=== PATIENT | female | born 1970 | race Caucasian/White ===

== ENCOUNTER 2021-08-23 06:33 | Observation (INO) | payer BC ==
[2021-07-30 11:57] LABS: BLOOD UREA NITROGEN,BUN 14 mg/dL (7.0-18.0); CHLORIDE,CL 104 mmol/L (98-107); GLUCOSE RANDOM 78 mg/dL (74-106); POTASSIUM,K 4.6 mmol/L (3.5-5.1); SODIUM,NA 140 mmol/L (136-145)
[2021-08-23 07:09] LABS: CARBON DIOXIDE,CO2 28.6 mmol/L (21.0-32.0)
[2021-08-23] MEDS ORDERED: Scopolamine 1.5 MG Transdermal Patch ONE (07:21)
[2021-08-23] MEDS ORDERED: Fluorescein 5 ML Vial ONE (07:29)
[2021-08-23] MEDS ORDERED: Methylene Blue 50 MG/10 ML Ampule ONE (07:29)
--- NOTE | 2021-08-23 07:29 | PCM.PREANE ---
Preanesthetic Assessment - Procedure Proposed Procedure: Lap assisted Vaginal Hysterectomy, Uni or Dipak Salpingo-Ooporectomy, cysto - Anesthesia/Transfusion/Family Hx Anesthesia History: Prior Anesthesia Reaction Type of Anesthesia Reaction: Excessive Nausea/Vomiting Family History of Anesthesia Reaction: No Transfusion History: No Prior Transfusion(s) - Review of Systems General: No Symptoms Pulmonary: No Symptoms Cardiovascular: No Symptoms (HLD) Gastrointestinal: No Symptoms Neurological: No Symptoms Other: Reports: None - Physical Assessment NPO Status Date: 08/24/21 NPO Status Time: 15:30 Vital Signs: Last Vital Signs Temp 97.7 F 08/23/21 06:55 Pulse 60 08/23/21 06:55 Resp 14 08/23/21 06:55 BP 123/57 L 08/23/21 06:55 Pulse Ox 98 08/23/21 06:55 Height: 5 ft 10 in Weight: 95.254 kg ASA Class: 2 Mental Status: Alert & Oriented x3 Airway Class: Mallampati = 2 Dentition: Reports: Normal Dentition Thyro-Mental Finger Breadths: 3 Mouth Opening Finger Breadths: 3 ROM/Head Extension: Full Lungs: Clear to Auscultation, Normal Respiratory Effort Cardiovascular: Regular Rate, Regular Rhythm - Lab Values: Laboratory Last Values WBC 6.33 K/uL (4.0-11.0) 08/23/21 06:17 RBC 4.26 M/uL (4.30-5.90) L 08/23/21 06:17 Hgb 12.7 g/dL (12.0-16.0) 08/23/21 06:17 Hct 38.8 % (36.0-46.0) 08/23/21 06:17 MCV 91.1 fL (80.0-98.0) 08/23/21 06:17 MCH 29.8 pg (27.0-32.0) 08/23/21 06:17 MCHC 32.7 g/dL (31.0-37.0) 08/23/21 06:17 RDW Std Deviation 41.4 fl (28.0-62.0) 08/23/21 06:17 RDW Coeff of Debo 13 % (11.0-15.0) 08/23/21 06:17 Plt Count 310 K/uL (150-400) 08/23/21 06:17 MPV 10.30 fL (7.40-12.00) 08/23/21 06:17 Neut % (Auto) 55.5 % (48.0-80.0) 08/23/21 06:17 Lymph % (Auto) 34.1 % (16.0-40.0) 08/23/21 06:17 [place] % (Auto) 8.1 % (0.0-15.0) 08/23/21 06:17 Eos % (Auto) 2.1 % (0.0-7.0) 08/23/21 06:17 Baso % (Auto) 0.2 % (0.0-1.5) 08/23/21 06:17 Neut # (Auto) 3.5 K/uL (1.4-5.7) 08/23/21 06:17 Lymph # (Auto) 2.2 K/uL (0.6-2.4) 08/23/21 06:17 [place] # (Auto) 0.5 K/uL (0.0-0.8) 08/23/21 06:17 Eos # (Auto) 0.1 K/uL (0.0-0.7) 08/23/21 06:17 Baso # (Auto) 0.0 K/uL (0.0-0.1) 08/23/21 06:17 Nucleated RBC % 0.0 /100WBC 08/23/21 06:17 Nucleated RBCs # 0 K/uL 08/23/21 06:17 Sodium 143 mmol/L (136-145) 08/23/21 06:17 Potassium 4.0 mmol/L (3.5-5.1) 08/23/21 06:17 Chloride 105 mmol/L (98-107) 08/23/21 06:17 Carbon Dioxide 28.6 mmol/L (21.0-32.0) 08/23/21 06:17 BUN 11 mg/dL (7.0-18.0) 08/23/21 06:17 Creatinine 1.0 mg/dL (0.6-1.0) 08/23/21 06:17 Est Cr Clr Drug Dosing 73.59 mL/min 08/23/21 06:17 Estimated GFR (MDRD) 58.9 ml/min 08/23/21 06:17 Glucose 100 mg/dL (74-106) 08/23/21 06:17 Calcium 9.3 mg/dL (8.5-10.1) 08/23/21 06:17 HCG, Qual POSITIVE (NEG) H 08/23/21 06:17 HCG, Quant 7.0 mIU/mL 07/30/21 11:04 SARS-CoV-2 RNA (BAUTISTA) NEGATIVE (NEGATIVE) 08/23/21 06:00 Blood Type A POSITIVE 08/23/21 06:17 Antibody Screen NEGATIVE 08/23/21 06:17 - Allergies Allergies/Adverse Reactions: Allergies Allergy/AdvReac Type Severity Reaction Status Date / Time Sulfa (Sulfonamide Allergy Blisters Verified 08/23/21 07:01 Antibiotics) - Acknowledgements Anesthesia Type Planned: General Anesthesia Pt an Appropriate Candidate for the Planned Anesthesia: Yes Alternatives and Risks of Anesthesia Discussed w Pt/Guardian: Yes Pt/Guardian Understands and Agrees with Anesthesia Plan: Yes PreAnesthesia Questionnaire HEENT History: Reports: Allergic Rhinitis, Other (See Below) Other HEENT History: wears glasses Cardiovascular History: Reports: High Cholesterol Respiratory History: Reports: None Gastrointestinal History: Reports: GERD Genitourinary History: Reports: Other (See Below) Other Genitourinary History: kidney infection 5 years ago [employer] History: Reports: Endometriosis, Musculoskeletal History: Reports: None Neurological History: Reports: None Psychiatric History: Reports: None Endocrine/Metabolic History: Reports: Diabetes, Gestational, Obesity/BMI 30+ Hematologic History: Reports: None Immunologic History: Reports: None Oncologic (Cancer) History: Reports: None Dermatologic History: Reports: None - Infectious Disease History Other Infectious Disease History: COVID positive in Aug, 2020 - Past Surgical History Head Surgeries/Procedures: Reports: None HEENT Surgical History: Reports: None Cardiovascular Surgical History: Reports: None Respiratory Surgical History: Reports: None GI Surgical History: Reports: None Female Surgical History: Reports: Other (See Below) Other Female Surgeries/Procedures: laparoscopy with ovarian cystectomy Endocrine Surgical History: Reports: None Neurological Surgical History: Reports: None Musculoskeletal Surgical History: Reports: None Oncologic Surgical History: Reports: None Dermatological Surgical History: Reports: None - SUBSTANCE USE Tobacco Use Status *Q: Never Tobacco User - HOME MEDS Home Medications: Home Meds Chlorpheniramine/Phenylephrine [Sinus-Allergy PE 4-10 mg Tab] 1 tab PO Q4H PRN 07/27/21 [History] Ibuprofen 2 tab PO ASDIRECTED PRN 07/27/21 [History] Multivitamin 1 tab PO DAILY 07/27/21 [History] [place]-3S/DHA/Epa/Fish Oil [[place]-3 Fish Oil 1,200 mg Sfgl] 2,400 mg PO DAILY 07/27/21 [History] Rosuvastatin [Crestor] 10 mg PO DAILY 07/27/21 [History] Calcium Carb, Citrate/Vit D3 [Calcium + D3 ER Tablet] 1 tab PO DAILY 07/28/21 [History] - CURRENT (IN HOUSE) MEDS Current Meds: Current Medications Discontinued Medications Scopolamine (Scopolamine 1.5 Mg Transdermal Patch) Confirm Administered Dose 1.5 mg .ROUTE .STK-MED ONE Stop: 08/23/21 07:22
[2021-08-23] MEDS ORDERED: Bupivacaine 0.25% 10 ML SDV ONE (07:31)
[2021-08-23] MEDS ORDERED: Midazolam 1 MG/ML 2 ML SDV ONE (07:31)
[2021-08-23] MEDS ORDERED: fentaNYL 250 MCG/5 ML SDV ONE (07:32)
[2021-08-23] MEDS ORDERED: Lidocaine 2% 5 ML SDV ONE (07:34)
[2021-08-23] MEDS ORDERED: Ondansetron 4 MG/2 ML SDV ONE (07:34)
[2021-08-23] MEDS ORDERED: Rocuronium Bromide 50 MG/5 ML Syringe ONE ×3 (07:34→09:21)
[2021-08-23] MEDS ORDERED: Dexamethasone 4 MG/ML 5 ML MDV ONE (07:34)
[2021-08-23] MEDS ORDERED: Propofol 200 MG/20 ML SDV ONE (07:34)
[2021-08-23] MEDS ORDERED: Sugammadex Sodium 200 MG/2 ML VIAL ONE (07:34)
[2021-08-23] MEDS ORDERED: HYDROmorphone 1 MG/ML Syringe IVPUSH PRN (08:25)
[2021-08-23] MEDS ORDERED: Albuterol 0.083% 2.5 MG/3 ML Neb Soln NEB PRN (08:25)
[2021-08-23] MEDS ORDERED: Ondansetron 4 MG/2 ML SDV IVPUSH PRN ×2 (08:25→10:15)
[2021-08-23] MEDS ORDERED: Metoclopramide 10 MG/2 ML SDV IVPUSH PRN (08:25)
[2021-08-23] MEDS ORDERED: fentaNYL 100 MCG/2 ML SDV IVPUSH PRN (08:25)
[2021-08-23] MEDS ORDERED: Naloxone 0.4 MG/ML SDV IVPUSH PRN (08:25)
[2021-08-23] MEDS ORDERED: Glycopyrrolate 0.2 MG/ML SDV ONE ×2 (08:57)
[2021-08-23] MEDS ORDERED: Furosemide 40 MG/4 ML VIAL ONE (09:45)
[2021-08-23] MEDS ORDERED: Ketorolac 30 MG/ML SDV ONE (10:00)
[2021-08-23] MEDS ORDERED: Ketorolac 30 MG/ML SDV IVPUSH ONE (10:15)
[2021-08-23] MEDS ORDERED: Acetaminophen/oxyCODONE 325-5 MG Tab PO PRN ×2 (10:15)
[2021-08-23] MEDS ORDERED: Promethazine 25 MG/ML SDV IM PRN (10:15)
--- NOTE | 2021-08-23 10:24 | PCM.OPNOTE ---
- General Post-Op/Procedure Note Date of Surgery/Procedure: 08/23/21 Operative Procedure(s): Laparoscopic assisted vaginal hysterectomy with bilateral salpingo-oophorectomy and cystoscopy Findings: Normal appearing anteverted uterus sounded to 9cm. Normal appearing bilateral ovaries and fallopian tubes. Pre Op Diagnosis: Postmenopausal bleeding Post-Op Diagnosis: Postmenopausal bleeding Anesthesia Technique: General ET Tube Primary Surgeon: Adelita Maher Anesthesia Provider: Mary Munoz Softball Player: Gege Chris Pathology: Bilateral fallopian tubes and ovaries, uterus and cervix Fluid Replacement, Intraop: 1,800 Output, Urine Amount: 30 (prior to procedure) EBL in mLs: 150 Complications: None known Condition: Good
--- NOTE | 2021-08-23 10:35 | PCM.POSTAN ---
POST ANESTHESIA ASSESSMENT - MENTAL STATUS Mental Status: Somnolent - VITAL SIGNS Vital Signs: Last Vital Signs Temp 97.7 F 08/23/21 06:55 Pulse 60 08/23/21 06:55 Resp 14 08/23/21 06:55 BP 123/57 L 08/23/21 06:55 Pulse Ox 98 08/23/21 06:55 - RESPIRATORY Respiratory Status: Respiratory Rate WNL, Airway Patent, O2 Saturation Stable - CARDIOVASCULAR CV Status: Pulse Rate WNL, Blood Pressure Stable - GASTROINTESTINAL GI Status: No Symptoms - PAIN Free Text/Narrative:: Resting comfortably - POST OP HYDRATION Hydration Status: Adequate & Stable
--- NOTE | 2021-08-23 10:49 | PCM48HPAN ---
Post Anesthesia Note - EVALUATION WITHIN 48HRS OF ANESTHETIC Vital Signs in Normal Range: Yes Patient Participated in Evaluation: Yes Respiratory Function Stable: Yes Airway Patent: Yes Cardiovascular Function Stable: Yes Hydration Status Stable: Yes Pain Control Satisfactory: Yes Nausea and Vomiting Control Satisfactory: Yes Mental Status Recovered: Yes Vital Signs: Last Vital Signs Temp 97.7 F 08/23/21 06:55 Pulse 60 08/23/21 06:55 Resp 14 08/23/21 06:55 BP 123/57 L 08/23/21 06:55 Pulse Ox 98 08/23/21 06:55 - COMMENTS/OBSERVATIONS Free Text/Narrative:: Pt doing well post-op. VSS. No apparent anesthetic complications. Dr. Dev Ram
[2021-08-23] MEDS: Morphine 4 MG/ML VIAL IVPUSH PRN ×3 (12:47→20:41)
[2021-08-23] MEDS: Ketorolac 30 MG/ML SDV IVPUSH PRN ×2 (16:10→23:52)
[2021-08-24 07:40] LABS: BLOOD UREA NITROGEN,BUN 9 mg/dL (7.0-18.0); CARBON DIOXIDE,CO2 27.7 mmol/L (21.0-32.0); CHLORIDE,CL 104 mmol/L (98-107); GLUCOSE RANDOM 119 mg/dL (74-106); POTASSIUM,K 4.2 mmol/L (3.5-5.1); SODIUM,NA 139 mmol/L (136-145)
--- NOTE | 2021-08-24 09:42 | PCM.SURGPN ---
- General Info Date of Service: 08/24/21 Date of Surgery/Procedure: 08/23/21 POD#: 1 Functional Status: Reports: Pain Controlled, Tolerating Diet, Ambulating, Urinating, Other (Resting comfortable in bed. ) - Patient Data Vitals - Most Recent: Last Vital Signs Temp 96.1 F L 08/24/21 08:41 Pulse 68 08/24/21 08:41 Resp 20 08/24/21 08:41 BP 88/53 L 08/24/21 08:41 Pulse Ox 94 L 08/24/21 08:41 Weight - Most Recent: 210 lb I&O - Last 24 Hours: Intake & Output 08/23/21 08/24/21 08/24/21 22:59 06:59 14:59 Intake Total 1730 Output Total 2450 Balance -720 Lab Results Last 24 Hrs: Laboratory Results - last 24 hr 08/24/21 08/24/21 Range/Units 06:03 06:03 WBC 9.69 (4.0-11.0) K/uL RBC 3.61 L (4.30-5.90) M/uL Hgb 10.9 L (12.0-16.0) g/dL Hct 33.2 L (36.0-46.0) % MCV 92.0 (80.0-98.0) fL MCH 30.2 (27.0-32.0) pg MCHC 32.8 (31.0-37.0) g/dL RDW Std Deviation 42.5 (28.0-62.0) fl RDW Coeff of Debo 13 (11.0-15.0) % Plt Count 273 (150-400) K/uL MPV 11.00 (7.40-12.00) fL Neut % (Auto) 76.4 (48.0-80.0) % Lymph % (Auto) 15.3 L (16.0-40.0) % [place] % (Auto) 8.3 (0.0-15.0) % Eos % (Auto) 0.0 (0.0-7.0) % Baso % (Auto) 0.0 (0.0-1.5) % Neut # (Auto) 7.4 H (1.4-5.7) K/uL Lymph # (Auto) 1.5 (0.6-2.4) K/uL [place] # (Auto) 0.8 (0.0-0.8) K/uL Eos # (Auto) 0.0 (0.0-0.7) K/uL Baso # (Auto) 0.0 (0.0-0.1) K/uL Nucleated RBC % 0.0 /100WBC Nucleated RBCs # 0 K/uL Sodium 139 (136-145) mmol/L Potassium 4.2 (3.5-5.1) mmol/L Chloride 104 (98-107) mmol/L Carbon Dioxide 27.7 (21.0-32.0) mmol/L BUN 9 (7.0-18.0) mg/dL Creatinine 0.9 (0.6-1.0) mg/dL Est Cr Clr Drug Dosing 81.77 mL/min Estimated GFR (MDRD) > 60.0 ml/min Glucose 119 H (74-106) mg/dL Calcium 8.8 (8.5-10.1) mg/dL Med Orders - Current: Current Medications Ketorolac Tromethamine (Ketorolac 30 Mg/Ml Sdv) 30 mg IVPUSH Q6H PRN PRN Reason: Pain (severe 7-10) Stop: 08/28/21 10:16 Last Admin: 08/23/21 23:52 Dose: 30 mg Documented by: Morphine Sulfate (Morphine 4 Mg/Ml Vial) 4 mg IVPUSH Q2H PRN PRN Reason: Pain (severe 7-10) Last Admin: 08/23/21 20:41 Dose: 4 mg Documented by: Ondansetron HCl (Ondansetron 4 Mg/2 Ml Sdv) 4 mg IVPUSH Q6H PRN PRN Reason: Nausea/Vomiting Oxycodone/Acetaminophen (Acetaminophen/Oxycodone 325-5 Mg Tab) 1 tab PO Q4H PRN PRN Reason: Pain (moderate 4-6) Oxycodone/Acetaminophen (Acetaminophen/Oxycodone 325-5 Mg Tab) 2 tab PO Q4H PRN PRN Reason: Pain (moderate 4-6) Last Admin: 08/24/21 07:59 Dose: 2 tab Documented by: Promethazine HCl (Promethazine 25 Mg/Ml Sdv) 25 mg IM Q6H PRN PRN Reason: Nausea/Vomiting Discontinued Medications Albuterol (Albuterol 0.083% 2.5 Mg/3 Ml Neb Soln) 2.5 mg NEB ONETIME PRN PRN Reason: Wheezing Bupivacaine HCl (Bupivacaine 0.25% 10 Ml Sdv) Confirm Administered Dose 10 ml .ROUTE .STK-MED ONE Stop: 08/23/21 07:32 Dexamethasone (Dexamethasone 4 Mg/Ml 5 Ml Mdv) Confirm Administered Dose 20 mg .ROUTE .STK-MED ONE Stop: 08/23/21 07:35 Droperidol (Droperidol 5 Mg/2 Ml Sdv) 0.625 mg IVPUSH ONETIME PRN PRN Reason: Nausea/Vomiting Fentanyl (Fentanyl 250 Mcg/5 Ml Sdv) Confirm Administered Dose 250 mcg .ROUTE .STK-MED ONE Stop: 08/23/21 07:33 Fentanyl (Fentanyl 100 Mcg/2 Ml Sdv) 50 mcg IVPUSH Q5M PRN PRN Reason: Pain (mild 1-3) Fluorescein Sodium (Fluorescein 5 Ml Vial) Confirm Administered Dose 5 ml .ROUTE .STK-MED ONE Stop: 08/23/21 07:30 Furosemide (Furosemide 40 Mg/4 Ml Vial) Confirm Administered Dose 40 mg .ROUTE .STK-MED ONE Stop: 08/23/21 09:46 Glycopyrrolate (Glycopyrrolate 0.2 Mg/Ml Sdv) Confirm Administered Dose 0.2 mg .ROUTE .STK-MED ONE Stop: 08/23/21 08:58 Glycopyrrolate (Glycopyrrolate 0.2 Mg/Ml Sdv) Confirm Administered Dose 0.2 mg .ROUTE .STK-MED ONE Stop: 08/23/21 08:58 Hydromorphone HCl (Hydromorphone 1 Mg/Ml Syringe) 1 mg IVPUSH Q10M PRN PRN Reason: Pain (moderate 4-6) Last Admin: 08/23/21 10:47 Dose: 1 mg Documented by: Cefazolin Sodium/Dextrose (Ancef) Confirm Administered Dose 50 mls @ as directed .ROUTE .STK-MED ONE Stop: 08/23/21 07:35 Acetaminophen (Ofirmev 1000 Mg/100 Ml) Confirm Administered Dose 100 mls @ as directed .ROUTE .STK-MED ONE Stop: 08/23/21 07:35 Ketorolac Tromethamine (Ketorolac 30 Mg/Ml Sdv) Confirm Administered Dose 30 mg .ROUTE .STK-MED ONE Stop: 08/23/21 10:01 Ketorolac Tromethamine (Ketorolac 30 Mg/Ml Sdv) 30 mg IVPUSH ONETIME ONE Stop: 08/23/21 10:16 Last Admin: 08/23/21 12:38 Dose: Not Given Documented by: Lidocaine (Lidocaine 2% 5 Ml Sdv) Confirm Administered Dose 10 ml .ROUTE .STK- MED ONE Stop: 08/23/21 07:35 Methylene Blue (Methylene Blue 50 Mg/10 Ml Ampule) Confirm Administered Dose 50 mg .ROUTE .STK-MED ONE Stop: 08/23/21 07:30 Metoclopramide HCl (Metoclopramide 10 Mg/2 Ml Sdv) 10 mg IVPUSH ONETIME PRN PRN Reason: Nausea/Vomiting Midazolam HCl (Midazolam 1 Mg/Ml 2 Ml Sdv) Confirm Administered Dose 2 mg .ROUTE .STK-MED ONE Stop: 08/23/21 07:32 Miscellaneous Medication (Phenylephrine Hcl In 0.9% Nacl 1 Mg/10 Ml Syringe) Confirm Administered Dose 1 mg .ROUTE .STK-MED ONE Stop: 08/23/21 08:27 Naloxone HCl (Naloxone 0.4 Mg/Ml Sdv) 0.1 mg IVPUSH ASDIRECTED PRN PRN Reason: Respiratory Depression Ondansetron HCl (Ondansetron 4 Mg/2 Ml Sdv) Confirm Administered Dose 4 mg .ROUTE .STK-MED ONE Stop: 08/23/21 07:35 Ondansetron HCl (Ondansetron 4 Mg/2 Ml Sdv) 4 mg IVPUSH ONETIME PRN PRN Reason: Nausea/Vomiting Propofol (Propofol 200 Mg/20 Ml Sdv) Confirm Administered Dose 200 mg .ROUTE .STK-MED ONE Stop: 08/23/21 07:35 Rocuronium [place] (Rocuronium [place] 50 Mg/5 Ml Syringe) Confirm Administered Dose 50 mg .ROUTE .STK-MED ONE Stop: 08/23/21 07:35 Rocuronium [place] (Rocuronium [place] 50 Mg/5 Ml Syringe) Confirm Administered Dose 50 mg .ROUTE .STK-MED ONE Stop: 08/23/21 07:36 Rocuronium [place] (Rocuronium [place] 50 Mg/5 Ml Syringe) Confirm Administered Dose 50 mg .ROUTE .STK-MED ONE Stop: 08/23/21 09:22 Scopolamine (Scopolamine 1.5 Mg Transdermal Patch) Confirm Administered Dose 1.5 mg .ROUTE .STK-MED ONE Stop: 08/23/21 07:22 Last Admin: 08/23/21 22:47 Dose: Not Given Documented by: Sugammadex Sodium (Sugammadex Sodium 200 Mg/2 Ml Vial) Confirm Administered Dose 200 mg .ROUTE .STK-MED ONE Stop: 08/23/21 07:35 - Exam General: Alert Lungs: Clear to Auscultation, Normal Respiratory Effort Cardiovascular: Regular Rate, Regular Rhythm GI/Abdominal Exam: Normal Bowel Sounds, Soft, No Distention, Other (Incision sites clean and dry) Extremities: Normal Range of Motion, Non-Tender, No Pedal Edema Skin: Warm, Dry, Cool Neurological: No New Focal Deficit Psy/Mental Status: Normal Mood Sepsis Event Note - Evaluation Sepsis Screening Result: No Definite Risk - Focused Exam Vital Signs: Vital Signs Temp Pulse Resp BP Pulse Ox 08/24/21 08:41 96.1 F L 68 20 88/53 L 94 L 08/24/21 03:57 96.7 F L 48 L 14 90/45 L 96 08/24/21 00:46 96.6 F L 45 L 14 97/50 L 96 - Problem List Review Problem List Initiated/Reviewed/Updated: Yes - My Orders Last 24 Hours: Active Orders 24 hr Category Date Time Status Patient Status [ADT] Routine ADT 08/23/21 10:16 Active Antiembolic Devices [RC] PER UNIT ROUTINE Care 08/23/21 10:17 Active Notify Provider Intake and Out [RC] ASDIRECTED Care 08/23/21 10:16 Active Notify Provider Vital Signs [RC] ASDIRECTED Care 08/23/21 10:16 Active Oxygen Therapy [RC] ASDIRECTED Care 08/23/21 10:16 Active RT Incentive Spirometry [RC] Q2HWA Care 08/23/21 10:16 Active Up With Assistance [RC] PER UNIT ROUTINE Care 08/23/21 10:16 Active Up ad Kellen [RC] PER UNIT ROUTINE Care 08/23/21 10:16 Active Urinary Catheter Removal [RC] Per Unit Routine Care 08/23/21 10:16 Active Vital Signs [RC] PER UNIT ROUTINE Care 08/23/21 10:16 Active Advance Diet Instructions [DIET] Diet 08/23/21 Dinner Active Acetaminophen/oxyCODONE [Percocet 325-5 MG] Med 08/23/21 10:15 Active 1 tab PO Q4H PRN Acetaminophen/oxyCODONE [Percocet 325-5 MG] Med 08/23/21 10:15 Active 2 tab PO Q4H PRN Ketorolac [Toradol] Med 08/23/21 10:15 Active 30 mg IVPUSH Q6H PRN Morphine Med 08/23/21 10:15 Active 4 mg IVPUSH Q2H PRN Ondansetron [Zofran] Med 08/23/21 10:15 Active 4 mg IVPUSH Q6H PRN Promethazine [Phenergan] Med 08/23/21 10:15 Active 25 mg IM Q6H PRN Peripheral IV Discontinue [OM.PC] Routine Oth 08/23/21 10:16 Ordered Sequential Compression Device [OM.PC] Per Unit Routine Oth 08/23/21 10:16 Ordered Resuscitation Status Routine Resus Stat 08/23/21 10:15 Ordered Medication Orders Ketorolac Tromethamine (Ketorolac 30 Mg/Ml Sdv) 30 mg IVPUSH Q6H PRN PRN Reason: Pain (severe 7-10) Stop: 08/28/21 10:16 Last Admin: 08/23/21 23:52 Dose: 30 mg Documented by: Admin: 08/23/21 16:10 Dose: 30 mg Documented by: BRITTNI Morphine Sulfate (Morphine 4 Mg/Ml Vial) 4 mg IVPUSH Q2H PRN PRN Reason: Pain (severe 7-10) Last Admin: 08/23/21 20:41 Dose: 4 mg Documented by: Admin: 08/23/21 17:54 Dose: 4 mg Documented by: Admin: 08/23/21 12:47 Dose: 4 mg Documented by: BRITTNI Ondansetron HCl (Ondansetron 4 Mg/2 Ml Sdv) 4 mg IVPUSH Q6H PRN PRN Reason: Nausea/Vomiting Oxycodone/Acetaminophen (Acetaminophen/Oxycodone 325-5 Mg Tab) 1 tab PO Q4H PRN PRN Reason: Pain (moderate 4-6) Oxycodone/Acetaminophen (Acetaminophen/Oxycodone 325-5 Mg Tab) 2 tab PO Q4H PRN PRN Reason: Pain (moderate 4-6) Last Admin: 08/24/21 07:59 Dose: 2 tab Documented by: BRITTNI Promethazine HCl (Promethazine 25 Mg/Ml Sdv) 25 mg IM Q6H PRN PRN Reason: Nausea/Vomiting - Assessment Assessment (Free Text/Narrative):: 50 year old female POD1 s/p LAVH-BSO and cystoscopy - Plan Plan (Free Text/Narrative):: Routine cares * VSS, afebrile * Toro catheter out this AM, voiding independently * Regular diet as tolerated * PO pain medications q4hrs * Encourage ambulation and fluid intake * Incentive spirometry when able Dispo: stable. Meeting postoperative milestones and anticipate discharge today. Discharge instructions reviewed.
[2021-08-24] MEDS ORDERED: Ibuprofen 800 MG Tab PO ONE (10:47)
--- NOTE | 2021-08-26 10:59 | OR ---
SURGEON: ADELITA LEVY MD DATE OF PROCEDURE: 08/23/2021 PREOPERATIVE DIAGNOSIS: Postmenopausal bleeding. POSTOPERATIVE DIAGNOSIS: Postmenopausal bleeding. PROCEDURES: Laparoscopic-assisted vaginal hysterectomy with bilateral salpingo-oophorectomy and cystoscopy. PRIMARY SURGEON: Adelita Levy MD. ANALYST COMPETITIVE INTELLIGENCE: Gege Chris MD ANESTHESIOLOGIST: Essie Vallecillo CRNA ANESTHESIA: General endotracheal. IV FLUIDS: 1800 mL of crystalloid. ESTIMATED BLOOD LOSS: 150 mL during the procedure. URINE OUTPUT: 30 mL straight cath prior to procedure. COMPLICATIONS: None known. INDICATION FOR PROCEDURE: The patient is a 50-year-old, 2, para 2, female who presented to [facility] with 1 week of vaginal bleeding. She had previously been 2 years postmenopausal at that time. An endometrial biopsy was obtained and was benign. However, a thickened endometrial lining was noted on ultrasound, and the patient desired to proceed with definitive management with hysterectomy. FINDINGS: Normal-appearing fallopian tubes and ovaries. Anteverted uterus sounded to 9 cm. DESCRIPTION OF PROCEDURE: The patient was taken to the operating room. Anesthesia was introduced. She was then prepped and draped in normal sterile fashion in dorsal lithotomy position. A Toro catheter was then placed, and after a time-out was performed, an open-sided Graves speculum was then inserted into the vagina to visualize the cervix, which was grasped at 12 o'clock with a long Allis. Uterus sounded to 9 cm. Cervix was then serially dilated and a JUAN M manipulator was then inserted into the cervix and the uterus. Intrauterine balloon was then inflated. Attention then turned to the patient's abdomen where a 5 mm incision was made infraumbilically. Veress needle was inserted into the peritoneal cavity and abdomen insufflated with CO2 gas. A 5 mm trocar was advanced into the cavity and laparoscope inserted there. The patient was then placed in Trendelenburg position and bilateral lower quadrant ports were then placed under direct visualization. A survey of the abdomen was performed. Findings noted as above. Ureters were visualized to be vermiculate bilaterally. The IP ligament was then tented upward on the left and a LigaSure device was then used to cauterize and cut following the ovary to the round ligament. The round ligament was then cauterized and cut. Following this, additional bites were then taken down the broad ligament anteriorly. The bladder was then taken down off the lower uterine segment on the left. Uterine vessels were then skeletonized and cauterized. Attention then was turned to the patient's right side. The right IP ligament was then tented upward and the LigaSure was then used to cauterize and cut the ligament following the ovary to the round ligament. The round ligament was then cauterized and cut. Following this, additional bites were taken down to the broad ligament anteriorly to meet the previous cauterization site. The uterine vessels were then skeletonized and cauterized. The bladder was then further taken down . Pubovesical cervical fascia was then visualized and laparoscopic portion of the procedure was completed at this time and attention then turned to the vaginal portion of the hysterectomy. A weighted speculum was placed into the vagina and cervix grasped with two thyroid clamps. The cervix was then circumferentially incised with cautery and bladder dissected off the pubovesical cervical fascia anteriorly with a sponge and Metzenbaum scissors. The anterior cul-de-sac was then entered sharply without difficulty. The same procedure was performed in the posterior cul-de-sac and it was entered without difficulty. A long weighted speculum was then inserted into the posterior cul-de-sac. At this point, Kofi clamps were then used to clamp the left uterosacral ligament, which was transected and suture ligated with 0 Vicryl and tagged. This procedure was then also performed on the right uterosacral ligament. The cardinal ligaments were then clamped, cut, and suture tied in likewise manner, on the patient's right. At this time, the uterus was completely dissected and specimen was then removed. Excellent hemostasis was then assured. The bilateral uterosacral ligaments were then transfixed to the vaginal cuff and the remainder of the vaginal cuff was then closed in a running fashion with 0 Vicryl. The instruments were then removed from the vagina. Hemostasis assured. The cystoscopy instruments were then prepared, and after the Toro catheter was removed, the cystoscope was then inserted into the urethra and then into the bladder. Fluorescein was given by Anesthesia and strong bilateral ureteral jets were noted. No suture or injury to the bladder noted. The cystoscope was then removed and bladder then drained. Toro catheter reinserted. Attention then turned to the abdominal portion once again. The abdomen was then re-insufflated and inspection of the pelvis was then performed. Hemostasis was noted with irrigation. All instruments were then removed along with the ports under direct visualization. The three incision sites were then closed with 4-0 Monocryl. Sponge, lap, and needle counts were correct x2. The patient was taken to recovery in stable condition. TIFFANY MIRANDA /[id number]
== END 2021-08-24 11:30 | disposition home or self-care (01) ==
LOC: MW.SDS 06:33 → MW.MS 06:46 → MW.SDS 10:16
PROVIDERS: ADMIT Obstetrics & Gynecology; ATTEND Obstetrics & Gynecology
DX: N95.0 Postmenopausal bleeding (principal); N84.0 Polyp of corpus uteri; D25.9 Leiomyoma of uterus, unspecified; N72 Inflammatory disease of cervix uteri; N83.8 Other noninflammatory disorders of ovary, fallopian tube and broad ligament; E66.9 Obesity, unspecified; Z88.2 Allergy status to sulfonamides; Z01.812 Encounter for preprocedural laboratory examination; Z20.822 Contact with and (suspected) exposure to COVID-19; Z68.30 Body mass index [BMI] 30.0-30.9, adult
CPT/HCPCS: 36415; 58552; 80048; 84702; 84703; 85025; 85027; 86850; 86900; 86901; 87635; A9270; G0378; J0131; J0690; J1100; J1170; J1885; J1940; J2250; J2270; J2370; J2704; J3010; J3490; J7030; 00944; J2405; U0002